=== PATIENT | female | born 1970 | race African-American/Black ===

== ENCOUNTER 2018-02-09 18:49 | Observation (INO) | payer SELFPAY ==
[~2018-02-09] VITALS: Ht 162.6 cm; Wt 106.6 kg
[~2018-02-09 18:49] MED LIST: ALDACTONE50 MG PO; BYETTA10 SC; GLIPIZIDE10 MG PO; HUMULIN 70/30 SC; JANUVIA100 MG PO; LANTUS100 MG/ML SC; LEVEMIR1000 UNITS SC; TORADOL PO; VENLAFAXINE HCL75 M1 PO; VENLAFAXINE150 MG PO
[2018-02-09 19:35] LABS: HEMATOCRIT 36.5 % (37.0-47.0); IMMATURE GRANULOCYTES 0.6 % (0.0-1.0); MEAN CELL VOLUME 75.7 fL CALC (80.0-100.0); MEAN CORPUSCULAR HGB 23.4 pG CALC (26.0-32.0); NEUT# 7.68 thou/uL (2.00-7.15); RED BLOOD COUNT 4.82 mill/uL (4.20-5.60)
[2018-02-09 20:05] LABS: ALBUMIN 3.9 g/dL (3.2-5.0); ALKALINE PHOSPHATASE 115 u/l (38-126); AMYLASE 57 u/l (30-110); ANION GAP 18 (6-22 (CALC)); BILIRUBIN, TOTAL 0.5 mg/dL (0.0-1.4); BUN 7 mg/dL (7-17); BUN/CREATININE RATIO 10 (12-20 (CALC)); CARBON DIOXIDE 27 mmol/l (22-30); CHLORIDE 95 mmol/l (95-108); CREATININE 0.7 mg/dL (0.5-1.0); GFR > 60 ML/MIN (>=60 (CALC)); GFR FOR AFR.AMER. > 60 ML/MIN (>=60 (CALC)); LIPASE 38 u/l (23-300); SGOT/AST 37 u/l (14-36); SGPT/ALT 26 u/l (9-52); SODIUM 137 mmol/l (137-146); TOTAL PROTEIN 8.1 g/dL (6.3-8.2)
[2018-02-09 20:06] LABS: POTASSIUM 3.3 mmol/l (3.5-5.1)
[2018-02-09 20:13] LABS: MYOGLOBIN 19 ng/mL (0 - 62)
[2018-02-09 20:19] LABS: HEMOGLOBIN 11.3 g/dl (12.0-16.0)
[2018-02-09 20:23] LABS: BARBITURATES NEGATIVE (NEGATIVE); COCAINE NEGATIVE (NEGATIVE); METHADONE NEGATIVE (NEGATIVE); TETRAHYDROCANNABIONOL NEGATIVE (NEGATIVE); TRICYLIC ANTIDEPRESSANTS NEGATIVE (NEGATIVE)
[2018-02-09 20:24] LABS: OXCYCODONE NEGATIVE (NEGATIVE)
[2018-02-10 00:50] VITALS: BP 136/86
[2018-02-10] MEDS ORDERED: METFORMIN500 MG PO (02:00)
[2018-02-10] MEDS ORDERED: LISINOPRIL2.5 MG PO (02:08)
[2018-02-10] MEDS ORDERED: LEVEMIR100 UNIT/M SC (02:13)
[2018-02-10] MEDS ORDERED: SPIRONOLACTONE25 MG PO (02:20)
[2018-02-10 04:00] VITALS: BP 119/69
[2018-02-10 08:22] LABS: ANION GAP 18 (6-22 (CALC)); BUN 6 mg/dL (7-17); BUN/CREATININE RATIO 10 (12-20 (CALC)); CALCULATED LDLCHOLESTEROL 103 mg/dL (62-129 (CALC)); CARBON DIOXIDE 31 mmol/l (22-30); CHLORIDE 94 mmol/l (95-108); CHOLESTEROL HDL RATIO 4.1 (<4.4 (CALC)); CREATININE 0.6 mg/dL (0.5-1.0); GFR > 60 ML/MIN (>=60 (CALC)); GFR FOR AFR.AMER. > 60 ML/MIN (>=60 (CALC)); HDL CHOLESTEROL 42 mg/dL (>=40); MAGNESIUM 1.6 mg/dL (1.6-2.3); SODIUM 139 mmol/l (137-146); TOTAL CHOLESTEROL 174 mg/dl (0-199); TOTAL TRIGLYCERIDES 142 mg/dl (30-149); VLDL CHOLESTROL 28 mg/dl (1-41 (CALC))
[2018-02-10 08:23] LABS: POTASSIUM 4.2 mmol/l (3.5-5.1)
[2018-02-10 09:25] VITALS: BP 126/54
[2018-02-10] MEDS ORDERED: LIPITOR20 M1 PO (10:55)
[2018-02-10] MEDS ORDERED: CHILD ASA LS81 MG PO (10:55)
[2018-02-10] MEDS ORDERED: BACLOFEN10 MG PO (10:55)
[2018-02-10 11:56] VITALS: BP 111/69
[2018-02-10 12:14] VITALS: BP 111/69
== END 2018-02-10 14:35 | disposition home or self-care (01) | DRG 313 ==
LOC: ED 18:49 → ED-I 20:29 → ED 23:37 → MS2 23:38
PROVIDERS: Emergency Medicine; Nurse Practitioner Family; ADMIT Internal Medicine; ATTEND Internal Medicine
DX: R07.89 Other chest pain (principal); E11.65 Type 2 diabetes mellitus with hyperglycemia; Z68.41 Body mass index [BMI] 40.0-44.9, adult; I10 Essential (primary) hypertension; M19.90 Unspecified osteoarthritis, unspecified site; F41.9 Anxiety disorder, unspecified; F32.9 Major depressive disorder, single episode, unspecified; R00.0 Tachycardia, unspecified; E78.5 Hyperlipidemia, unspecified; R93.8 Abnormal findings on diagnostic imaging of other specified body structures; Z91.14 Patient's other noncompliance with medication regimen; Z86.2 Personal history of diseases of the blood and blood-forming organs and certain disorders involving the immune mechanism; Z79.4 Long term (current) use of insulin
CPT/HCPCS: G0378

== ENCOUNTER 2018-08-18 07:57 | Emergency (ER) | payer SELFPAY ==
[~2018-08-18] VITALS: Ht 162.6 cm; Wt 109.1 kg
[~2018-08-18 07:57] MED LIST changes: +BACLOFEN10 MG PO; +CHILD ASA LS81 MG PO; +LEVEMIR100 UNIT/M SC; +LIPITOR20 M1 PO; +LISINOPRIL2.5 MG PO; +METFORMIN500 MG PO; +SPIRONOLACTONE25 MG PO
[2018-08-18] MEDS ORDERED: OMEGA 31000 MG PO (08:30)
[2018-08-18 09:02] LABS: HEMATOCRIT 37.8 % (37.0-47.0); HEMOGLOBIN 11.8 g/dl (12.0-16.0); IMMATURE GRANULOCYTES 0.6 % (0.0-5.0); MEAN CELL VOLUME 74.9 fL CALC (80.0-100.0); MEAN CORPUSCULAR HGB 23.4 pG CALC (26.0-32.0); MEAN CORPUSCULAR HGB CONC 31.2 g/L CALC (32.0-36.0); NEUT# 10.59 thou/uL (2.00-7.15); RED BLOOD COUNT 5.05 mill/uL (4.20-5.60); RED CELL DISTRI WIDTH 16.4 % (11.5-15.5)
[2018-08-18 09:04] LABS: URINE BLOOD DIPSTICK TRACE-LYSED (NEGATIVE); URINE COLOR ORANGE; URINE GLUCOSE - DIPSTICK 500 mg/dL (NEGATIVE); URINE KETONE 15 mg/dL (NEGATIVE); URINE PROTEIN - DIPSTICK 100 mg/dL (NEG-TRACE)
[2018-08-18 09:11] LABS: URINE CLARITY CLOUDY; URINE LEUK ESTERASE LARGE (NEGATIVE); URINE NITRITE - DIPSTICK POSITIVE (Negative)
[2018-08-18 09:12] LABS: URINE BACTERIA MODERATE hpf; URINE BILIRUBIN - DIPSTICK NEGATIVE (NEGATIVE); URINE EPITHELIAL CELLS FEW EPI/hpf (0-FEW); URINE WBC TNTC WBC/hpf (0-5)
[2018-08-18 09:24] LABS: ALBUMIN 3.8 g/dL (3.2-5.0); ALKALINE PHOSPHATASE 108 u/l (38-126); BILIRUBIN, TOTAL 0.6 mg/dL (0.0-1.4); BUN 13 mg/dL (7-17); BUN/CREATININE RATIO 20 (12-20 (CALC)); CARBON DIOXIDE 25 mmol/l (22-30); CHLORIDE 92 mmol/l (95-108); CREATININE 0.7 mg/dL (0.5-1.0); GFR > 60 ML/MIN (>=60 (CALC)); GFR FOR AFR.AMER. > 60 ML/MIN (>=60 (CALC)); POTASSIUM 4.6 mmol/l (3.5-5.1); SGOT/AST 39 u/l (14-36); TOTAL PROTEIN 7.4 g/dL (6.3-8.2)
[2018-08-18 09:25] LABS: ANION GAP 19 (6-22 (CALC)); SODIUM 131 mmol/l (137-146)
[2018-08-18] MEDS ORDERED: KEFLEX500 MG PO (10:16)
[2018-08-18 11:19] VITALS: BP 147/65
== END 2018-08-18 11:19 | disposition home or self-care (01) | DRG 690 ==
LOC: ED 07:57
PROVIDERS: Emergency Medicine
DX: N39.0 Urinary tract infection, site not specified (principal); E11.65 Type 2 diabetes mellitus with hyperglycemia; I10 Essential (primary) hypertension; B96.1 Klebsiella pneumoniae [K. pneumoniae] as the cause of diseases classified elsewhere

== ENCOUNTER 2018-11-06 16:14 | Emergency (ER) | payer OTHER ==
[~2018-11-06] VITALS: Ht 162.6 cm; Wt 104.0 kg
[~2018-11-06 16:14] MED LIST changes: +KEFLEX500 MG PO; +OMEGA 31000 MG PO
[2018-11-06] MEDS ORDERED: BACTRIM DS1 TAB PO (16:46)
[2018-11-06] MEDS ORDERED: SPIRONOLACTONE25 MG PO (16:47)
[2018-11-06] MEDS ORDERED: VENLAFAXINE HC150 MG PO (16:48)
[2018-11-06] MEDS ORDERED: LISINOPRIL5 MG PO (16:48)
[2018-11-06] MEDS ORDERED: LEVEMIR100 UNIT/M SC (16:49)
[2018-11-06 18:01] LABS: HEMATOCRIT 39.1 % (37.0-47.0); IMMATURE GRANULOCYTES 0.2 % (0.0-5.0); MEAN CELL VOLUME 75.3 fL CALC (80.0-100.0); MEAN CORPUSCULAR HGB 23.1 pG CALC (26.0-32.0); MEAN CORPUSCULAR HGB CONC 30.7 g/L CALC (32.0-36.0); NEUT# 6.39 thou/uL (2.00-7.15); RED BLOOD COUNT 5.19 mill/uL (4.20-5.60); RED CELL DISTRI WIDTH 16.3 % (11.5-15.5)
[2018-11-06 18:02] LABS: URINE BILIRUBIN - DIPSTICK NEGATIVE (NEGATIVE); URINE BLOOD DIPSTICK TRACE-LYSED (NEGATIVE); URINE COLOR YELLOW; URINE GLUCOSE - DIPSTICK 250 mg/dL (NEGATIVE); URINE KETONE NEGATIVE (NEGATIVE); URINE LEUK ESTERASE SMALL (NEGATIVE); URINE NITRITE - DIPSTICK POSITIVE (Negative); URINE PROTEIN - DIPSTICK 100 mg/dL (NEG-TRACE)
[2018-11-06 18:18] LABS: ALBUMIN 4.5 g/dL (3.2-5.0); ALKALINE PHOSPHATASE 91 u/l (38-126); ANION GAP 20 (6-22 (CALC)); BILIRUBIN, TOTAL 0.4 mg/dL (0.0-1.4); BUN 10 mg/dL (7-17); BUN/CREATININE RATIO 12 (12-20 (CALC)); CARBON DIOXIDE 26 mmol/l (22-30); CHLORIDE 91 mmol/l (95-108); CREATININE 0.9 mg/dL (0.5-1.0); GFR > 60 ML/MIN (>=60 (CALC)); GFR FOR AFR.AMER. > 60 ML/MIN (>=60 (CALC)); POTASSIUM 4.5 mmol/l (3.5-5.1); SGOT/AST 23 u/l (14-36); SODIUM 132 mmol/l (137-146); TOTAL PROTEIN 8.1 g/dL (6.3-8.2)
[2018-11-06 18:20] LABS: URINE BACTERIA MANY hpf; URINE SQUAMOUS EPITHELIAL CELL FEW EPI/hpf (0-FEW); URINE WBC 20-50 WBC/hpf (0-5)
[2018-11-06] MEDS ORDERED: ONDANSETRON4 MG PO (18:24)
[2018-11-06] MEDS ORDERED: KEFLEX500 MG PO (18:24)
[2018-11-06 18:43] VITALS: BP 137/97
== END 2018-11-06 19:26 | disposition home or self-care (01) | DRG 690 ==
LOC: ED 16:14
PROVIDERS: Emergency Medicine
DX: N39.0 Urinary tract infection, site not specified (principal); E11.9 Type 2 diabetes mellitus without complications; I10 Essential (primary) hypertension; M19.90 Unspecified osteoarthritis, unspecified site; B96.1 Klebsiella pneumoniae [K. pneumoniae] as the cause of diseases classified elsewhere

== ENCOUNTER 2019-12-08 00:45 | Inpatient (IN) | payer BC ==
[~2019-12-08] VITALS: Ht 162.6 cm; Wt 112.1 kg
[~2019-12-08 00:45] MED LIST changes: +ACCU-CHEK AVIVAP100 XX; +AMOXICILLIN500 MG PO; +BACTRIM DS1 TAB PO; +BYETTA10 MC1 SC; +DIFLUCAN150 MG OR; +EFFEXOR37.5 MG PO; +GLIPIZIDE10 M1 PO; +GLUCOTROL10 MG PO; +HUMALOG100 UNIT/M SC; +HYDROCHLOROT25 MG PO; +INSULIN SYR1 ML/31 G SC; +LIPITOR10 MG PO; +LISINOPRIL5 MG PO; +MOTRIN800 MG PO; +ONDANSETRON4 MG PO; +PERCOCET 5/325M1 TAB PO; +SPIRONOLACT50 M1 PO; +VENLAFAXINE HC150 M1 PO; +VENLAFAXINE HC150 MG PO
--- NOTE | 2019-12-08 01:35 | NUR ---
WHILE ATTEMPTING TO OBTAIN THROAT CULTURE...PT BEGAN VOMITING. NOTIFIED AND JORDI ORDERED. PT MEDICATED AND CULTURES OBTAINED.
--- NOTE | 2019-12-08 01:50 | NUR ---
IV STARTED/LABS DRAWN. ABD COMPLETED. BSC TO BS TO COLLECT SAMPLE...SINCE PT IS HAVING SOME INCONT.
[2019-12-08 02:18] LABS: HEMATOCRIT 34.5 % (37.0-47.0); HEMOGLOBIN 10.7 g/dl (12.0-16.0); IMMATURE GRANULOCYTES 0.8 % (0.0-5.0); MEAN CELL VOLUME 73.4 fL CALC (80.0-100.0); MEAN CORPUSCULAR HGB 22.8 pG CALC (26.0-32.0); NEUT# 12.34 thou/uL (2.00-7.15); RED BLOOD COUNT 4.7 mill/uL (4.20-5.60)
[2019-12-08 02:36] LABS: ALBUMIN 3.9 g/dL (3.2-5.0); ALKALINE PHOSPHATASE 102 u/l (38-126); AMYLASE 39 u/l (30-110); BILIRUBIN, TOTAL 0.4 mg/dL (0.0-1.4); BUN 10 mg/dL (7-17); BUN/CREATININE RATIO 12 (12-20 (CALC)); CARBON DIOXIDE 26 mmol/l (22-30); CHLORIDE 93 mmol/l (95-108); CREATININE 0.8 mg/dL (0.5-1.0); GFR > 60 ML/MIN (>=60 (CALC)); GFR FOR AFR.AMER. > 60 ML/MIN (>=60 (CALC)); LIPASE 48 u/l (23-300); MAGNESIUM 1.4 mg/dL (1.6-2.3); POTASSIUM 4.3 mmol/l (3.5-5.1); SGOT/AST 28 u/l (14-36); TOTAL PROTEIN 7.4 g/dL (6.3-8.2)
[2019-12-08 02:38] LABS: URINE BILIRUBIN - DIPSTICK NEGATIVE (NEGATIVE); URINE BLOOD DIPSTICK SMALL (NEGATIVE); URINE COLOR YELLOW; URINE GLUCOSE - DIPSTICK >=1000 mg/dL (NEGATIVE); URINE KETONE TRACE mg/dL (NEGATIVE); URINE LEUK ESTERASE NEGATIVE (NEGATIVE); URINE PH 5.5 (4.5-8.0); URINE PROTEIN - DIPSTICK 100 mg/dL (NEG-TRACE); URINE UROBILINOGEN - DIPSTICK 0.2 E.U./dL (0.2)
[2019-12-08 02:39] LABS: ANION GAP 16 (6-22 (CALC)); SODIUM 131 mmol/l (137-146)
[2019-12-08 02:41] LABS: URINE BACTERIA MANY hpf; URINE EPITHELIAL CELLS MODERATE EPI/hpf (0-FEW); URINE NITRITE - DIPSTICK POSITIVE (Negative)
--- NOTE | 2019-12-08 03:30 | NUR ---
RETURNED FROM RADIOLOGY VIA W/C.
--- NOTE | 2019-12-08 04:10 | NUR ---
MED REQ COMPLETED.
[2019-12-08] MEDS ORDERED: LISINOPRIL10 MG PO (04:18)
[2019-12-08] MEDS ORDERED: LEVEMIR100 UNIT/M SC (04:19)
[2019-12-08] MEDS ORDERED: METFORMIN500 MG PO (04:20)
[2019-12-08] MEDS ORDERED: SPIRONOLACTONE25 MG PO (04:20)
--- NOTE | 2019-12-08 04:24 | NUR ---
REPORT REC FROM PRIYANKA HERMAN
--- NOTE | 2019-12-08 04:25 | NUR ---
REPORT CALLED TO FLOOR.
--- NOTE | 2019-12-08 04:38 | NUR ---
PT ARRIVED TO [place] VIA STRETCHER ACCOMPANIED BY MONROE HERMAN. PT A&O X3. NO DISTRESS NOTED. STEADY GAIT OBSERVED WHILE AMBULATING TO THE BATHROOM. PT DENIES ANY DIZZINESS AT THIS TIME. PT DENIES ANY NAUSEA BUT DOES REPORT SOME ABD TENDERNESS. EXPLAINED TO THE PT THAT MOTRIN WAS AVAILABLE,PT REFUSED. CHICKEN BROTH OFFEREDAND GIVEN ALONG WITH A DIET GINGERALE. [facility] REFUSED. MAGENSIUM INFUSING AT A RATE OF 50 ML/HR. ORIENTED PT TO ROOM. ASSESSMENT COMPLETED. CALL LIGHT IN REACH.CONTINUE TO MONITOR.
[2019-12-08 04:40] VITALS: BP 134/79
--- NOTE | 2019-12-08 04:55 | NUR ---
TO FLOOR VIA STRETCHER WITH IVF/MAGNESIUM INFUSING VIA PUMP. PT RESTING. NAD. AMBULATORY TO SCALE AND BED UPON ARRIVAL.
[2019-12-08 05:22] LABS: HEMATOCRIT 32.5 % (37.0-47.0); IMMATURE GRANULOCYTES 0.7 % (0.0-5.0); MEAN CELL VOLUME 74.2 fL CALC (80.0-100.0); MEAN CORPUSCULAR HGB 22.8 pG CALC (26.0-32.0); MEAN CORPUSCULAR HGB CONC 30.8 g/dL CAL (32.0-36.0); NEUT# 10.55 thou/uL (2.00-7.15); RED BLOOD COUNT 4.38 mill/uL (4.20-5.60)
[2019-12-08 05:39] LABS: ALBUMIN 3.5 g/dL (3.2-5.0); ALKALINE PHOSPHATASE 83 u/l (38-126); ANION GAP 18 (6-22 (CALC)); BILIRUBIN, TOTAL 0.3 mg/dL (0.0-1.4); BUN 9 mg/dL (7-17); BUN/CREATININE RATIO 13 (12-20 (CALC)); CARBON DIOXIDE 23 mmol/l (22-30); CHLORIDE 97 mmol/l (95-108); CREATININE 0.7 mg/dL (0.5-1.0); GFR > 60 ML/MIN (>=60 (CALC)); GFR FOR AFR.AMER. > 60 ML/MIN (>=60 (CALC)); MAGNESIUM 1.6 mg/dL (1.6-2.3); POTASSIUM 4.1 mmol/l (3.5-5.1); SGOT/AST 25 u/l (14-36); SODIUM 134 mmol/l (137-146); TOTAL PROTEIN 6.7 g/dL (6.3-8.2)
--- NOTE | 2019-12-08 05:57 | NUR ---
CRITICAL LACTIC RESULT. RESULTS CALLED TO DR GERARD. PER PHYSICIAN, GIVE PT ONE LITER OF FLUIDS(NS) WIDE OPENED,BOLUS. ORDER WRITTEN AND FAXED TO
[2019-12-08 06:09] LABS: TSH, 3RD GENERATION 0.64 uIU/mL (0.47 - 4.68)
--- NOTE | 2019-12-08 09:00 | NUR ---
PT SEEN AWAKE, ALERT, ORIENTED X 3. LUNGS CLEAR, RA. PT WITH HEADACHE PAIN, PROVIDED MOTRIN FOR SAME. PT WITH UTI SYMPTOMS PER KNOWN UTI.
[2019-12-08] MEDS ORDERED: METFORMIN HCL500 M2 PO (09:55)
[2019-12-08 11:06] VITALS: BP 136/71
[2019-12-08 15:15] VITALS: BP 110/70
--- NOTE | 2019-12-08 16:00 | NUR ---
PT AT REST IN THE BED, NO EVIDENCE OF DISTRESS. PYRIDIUM PROVIDED FOR BLADDER SPASMS, TOLD TO EXPECT COLOR CHANGE IN URINE.
--- NOTE | 2019-12-08 18:36 | NUR ---
PT AT REST IN THE BED, NO DISTRESS, NO COMPLAINTS. PT AWARE OF ELEVATED BLOOD SUGARS, SAYS SHE KNOWS THAT SHE NEEDS TO CHANGE COURSE.
--- NOTE | 2019-12-08 19:20 | NUR ---
ASSESSMENT COMPLETED. PT. SITTING UP ON THE SIDE OF THE BED WITH NO RESP. DISTRESS NOTED. DENIES NEEDS/PAIN. IV SITE PATENT AND ORDERED IVF INFUSING. UPDATED PT. ON POC AND NEW MEDICATIONS, PT. REFUSES LOVENOX SCHEDULED FOR TONIGHT, WILL DOCUMENT SO. PT. REPORTS NO BM TODAY. URINE EMPTIED. BSC AT BEDSIDE. CALL LIGHT IS IN REACH. WILL CONTINUE TO MONITOR.
[2019-12-08 19:29] VITALS: BP 128/20
--- NOTE | 2019-12-08 23:17 | NUR ---
PT. RESTING IN BED ON RIGHT SIDE WITH NO RESP. DISTRESS NOTED. C/O VERNON 06/18 AND MEDICATED WITH ORDERED PRN TYLENOL;WILL REASESS.
[2019-12-09] VITALS (7 sets, daily range): BP systolic 112–180; BP diastolic 58–100
--- NOTE | 2019-12-09 04:30 | NUR ---
IV SITE SL AT THIS TIME FOR SHOWER. PT. DENIES FURTHER NEEDS. CALL LIGHT IS IN REACH.
[2019-12-09 05:11] LABS: HEMATOCRIT 29.1 % (37.0-47.0); HEMOGLOBIN 8.6 g/dl (12.0-16.0); IMMATURE GRANULOCYTES 0.7 % (0.0-5.0); MEAN CELL VOLUME 75.6 fL CALC (80.0-100.0); MEAN CORPUSCULAR HGB 22.3 pG CALC (26.0-32.0); MEAN CORPUSCULAR HGB CONC 29.6 g/dL CAL (32.0-36.0); NEUT# 5.22 thou/uL (2.00-7.15); RED BLOOD COUNT 3.85 mill/uL (4.20-5.60); RED CELL DISTRI WIDTH 16.2 % (11.5-15.5)
[2019-12-09 05:29] LABS: ANION GAP 12 (6-22 (CALC)); BUN 5 mg/dL (7-17); BUN/CREATININE RATIO 8 (12-20 (CALC)); CARBON DIOXIDE 23 mmol/l (22-30); CHLORIDE 104 mmol/l (95-108); CREATININE 0.6 mg/dL (0.5-1.0); GFR > 60 ML/MIN (>=60 (CALC)); GFR FOR AFR.AMER. > 60 ML/MIN (>=60 (CALC)); MAGNESIUM 1.8 mg/dL (1.6-2.3); POTASSIUM 4.2 mmol/l (3.5-5.1); SODIUM 135 mmol/l (137-146)
--- NOTE | 2019-12-09 07:00 | NUR ---
SHIFT CHANGE REPORT, PT AWAKE ALERT AND ORIENTED, C/O HEADACHE AT THIS TIME, TELE MONITOR IN PLACE, IVF INFUSING, NEEDS ADDRESSED, CALL GRAVES IN REACH.
--- NOTE | 2019-12-09 09:00 | NUR ---
SHIVANI NEGRETE ROUNDED AND DISCUSSED/ADDRESSED CONCERNS, PT STATED UNDERSTANDING. SOFT CRAB SHEDDER NOTIFIED OF LACTIC ACID RESULT, NO NEW ORDERS.
--- NOTE | 2019-12-09 10:28 | NUR ---
RUBINA FROM DIETARY CONSULTING AT THIS TIME AND EDUCATING PT ON THERAPEUTIC DIET TO CONTROL DIABETES.
--- NOTE | 2019-12-09 13:00 | NUR ---
PT C/O DIFFERENT FAMILY MEMBERS CALLING HER SEVERAL TIMES AND ACCUSING HER OF BEING RESPONSIBLE FOR HER HOSPITALIZATION SHE DOES NOT TAKE CARE OF HERSELF THE WAY SHE SHOULD AND ALSO ACCUSING HER OF BEING RESPONSIBLE FOR HER CHILDREN'S ACTION. SHE IS UNABLE TO REST WELL SHE IS BEING INTERRUPTED OFTEN BY PHONE CALLS AND THIS SITUATION CONTRIBUTES TO HER HEADACHE. MEDICAL ISSUES ADDRESSED BUT ADVISED SHE SHOULD ASK FAMILY TO CALL WITHIN GIVEN TIMEFRAME.
--- NOTE | 2019-12-09 16:00 | NUR ---
SLEEPING AT THIS TIME AFTER MEDICATED FOR HEADACHE, NO VISIBLE SIGN DISCOMFORT, CALL GRAVES IN REACH.
--- NOTE | 2019-12-09 19:35 | NUR ---
PT SITTING IN BED WATCHING TV. A&O X3. NO DISTRESS NOTED. PT DENIES ANY PAIN AT THIS TIME. PER PT SHE WAS ABLE TO TOLERATE HER SUPPER WELL WITH NO NAUSEA. NO OTHER NEEDS AT THIS TIME. ASSESSMENT COMPLETED. DISCUSSED POC. CALL LIGHT IN REACH. CONTINUE TO MONITOR.
[2019-12-10] VITALS (16 sets, daily range): BP systolic 121–189; BP diastolic 55–84
--- NOTE | 2019-12-10 00:02 | NUR ---
PT SLEEPING IN BED. NO DISTRESS NOTED. RESP EVEN AND UNLABORED. CONTINUE TO MONITOR.
[2019-12-10 04:59] LABS: HEMATOCRIT 29.4 % (37.0-47.0); HEMOGLOBIN 8.9 g/dl (12.0-16.0); MEAN CELL VOLUME 75.6 fL CALC (80.0-100.0); MEAN CORPUSCULAR HGB 22.9 pG CALC (26.0-32.0); MEAN CORPUSCULAR HGB CONC 30.3 g/dL CAL (32.0-36.0); RED BLOOD COUNT 3.89 mill/uL (4.20-5.60); RED CELL DISTRI WIDTH 16.2 % (11.5-15.5)
[2019-12-10 05:12] LABS: ANION GAP 13 (6-22 (CALC)); BUN 5 mg/dL (7-17); BUN/CREATININE RATIO 9 (12-20 (CALC)); CARBON DIOXIDE 24 mmol/l (22-30); CHLORIDE 102 mmol/l (95-108); CREATININE 0.6 mg/dL (0.5-1.0); GFR > 60 ML/MIN (>=60 (CALC)); GFR FOR AFR.AMER. > 60 ML/MIN (>=60 (CALC)); MAGNESIUM 1.8 mg/dL (1.6-2.3); POTASSIUM 4.3 mmol/l (3.5-5.1); SODIUM 134 mmol/l (137-146)
--- NOTE | 2019-12-10 07:10 | NUR ---
REPORT RECEIVED FROM LILLIERN;PT RESTING IN SEMI FOWLERS POSITION;INTRODUCED SELF TO PT AND POC DISCUSSED;RESPIRATIONS EVEN AND UNLABORED ON RA;PT DENIES ANY CURRENT PAIN OR DISCOMFORTS,PAIN SCALE AND REPORTING EDUCATED;TELE MONITORING IN PLACE;IV SITE INFUSING NS WITH EASE PER ORDER;PT ENCOURAGED TO CALL FOR ASSISTANCE IF NEEDED;FALL PRECAUTIONS IN PLACE WITH BED IN THE LOWEST POSITION AND CALL LIGHT IN REACH;WILL CONTINUE TO MONITOR
--- NOTE | 2019-12-10 08:45 | NUR ---
NATALIE,ER MONITORING NOTIFIED WRITTER OF POSSIBLE V-TACH VS PVS'S.PT ASYMPTOMATIC AT THIS TIME. STRIP SENT TO MED/SURG AND ADIA CARDENAS NOTIFIED. EKG TO BE OBTAINED.
--- NOTE | 2019-12-10 09:00 | NUR ---
PT RESTING AT BEDSIDE,A&O X3;VS OBTAINED AND ASSESSMENT COMPLETED;PT REPORTS THAT HEADACHE PAIN HAS DECREASED SINCE TYLENOL ADMINISTRATION,PAIN SCALE AND REPORTING RE-EDUCATED;RESPIRATIONS EVEN AND UNLABORED ON RA;ABDOMEN DISTENDED/SOFT ON PALPATION AND ACTIVE IN ALL 4 QUADRANTS;WEAK PEDAL PULSES;GENERALIZED EDEMA NOTED;TELE MONITORING IN PLACE;#20G TO LAC INFUSING NS PER ORDER WITH ASE,SITE APPEARS HEALTHY;PT DENIES ANY ADDITIONAL NEEDS AND IS ENCOURAGED TO CALL FOR ASSISTANCE IF NEEDED;FALL PRECAUTIONS IN PLACE WITH CALL LIGHT IN REACH;WILL CONTINUE TO MONITOR
--- NOTE | 2019-12-10 09:36 | NUR ---
LAB AT BEDSIDE
--- NOTE | 2019-12-10 10:32 | NUR ---
AT BEDSIDE DISCUSSING POC.
--- NOTE | 2019-12-10 10:45 | NUR ---
PT RESTING IN SEMI FOWLERS POSITION;RESPIRATIONS SHALLOW ON RA AND O2 SATS 88-89%, PT PLACED ON O2 @ 2L VIA NC AND O2 QUICKLY MECHE TO 91%;PT DENIES ANY CURRENT PAIN OR DISCOMFORTS;TELE MONITORING IN PLACE;CURRENT TEMP 101.3, PT TO BE MEDICATED WITH PRN MOTRIN 800MG PO,BLANKETS REMOVED AND AC LOWERED;IV FLUIDS CONTINUE TO INFUSE WITH EASE;ACCUCHECK 285, PT COVERED WITH SLIDING SCALE NOVOLOG PER ORDER;PT ENCOURAGED TO CALL FOR ASSISTANCE IF NEEDED;CALL LIGHT IN REACH;WILL CONTINUE TO MONITOR
--- NOTE | 2019-12-10 11:00 | NUR ---
PT TRANSPORTED TO [facility] IN STABLE CONDITION VIA WHEELCHAIR ACCOMPANIED BY FAITH LUNA.
--- NOTE | 2019-12-10 11:09 | NUR ---
PT RETURNED TO MED/SURG ROOM 279 IN STABLE CONDITION VIA WHEELCHAIR IN STABLE CONDITION ACCOMPANIED BY FAITH LUNA
--- NOTE | 2019-12-10 11:56 | NUR ---
SPOKE TO [facility],PT TO BE TRANSPORTED TO ICU BED 8
--- NOTE | 2019-12-10 12:20 | NUR ---
TEMP RE-CHECK 98.9.PT SWAB FOR COVID19 AT THIS TIME VIA LEFT NARE AND SENT DIRECTLY TO LAB FOR TESTING AND SEND OUT AT THIS TIME;PT VERBALIZES UNDERSTANDING REGARDING TRANSFER TO ICU AND NEG PRESSURE PRECAUTIONS;RESPIRATIONS REMAIN EVEN AND UNLABORED ON O2 @ 2L VIA NC;WILL CONTINUE TO MONITOR
--- NOTE | 2019-12-10 12:30 | NUR ---
REPORT GIVEN TO BATSHEVA MIXON
--- NOTE | 2019-12-10 12:40 | NUR ---
Discharge instructions given. Patient verbalizes understanding of same. Discharged in stable condition via Wheelchair to Home with family. All belongings sent with pt. PT TRANSPORTED TO [facility] IN STABLE CONDITION VIA WHEELCHAIR ACCOMPANIED FAITH IBARRA IN STABLE CONDITION.DAUGHTER TO TRANSPORT PT HOME.
--- NOTE | 2019-12-10 12:45 | NUR ---
PT TRANSFERRED FROM [facility] TO ICU. PT ON OXYGEN. PT DENIES PAIN, SOB AND CHEST PAIN AT THIS TIME. EDUCATED PATIENT ON ICU STATUS AND COVID RULE OUT STATUS. PT VERBALIZED UNDERSTANDING. VOIDING VIA BEDSIDE COMMODE. STABLE GATE. WILL CONTINUE TO MONITOR.
--- NOTE | 2019-12-10 12:45 | NUR ---
PT TRANSPORTED TO ICU BED 8 IN STABLE CONDITION VIA HOSPITAL BED ACCOMPANIED BY TIFFANY AND FAITH LUNA.CARE RELINQUISHED TO BATSHEVA MIXON.
--- NOTE | 2019-12-10 13:57 | NUR ---
ID CONSULT WITH DR. CARI QUINTEROS
--- NOTE | 2019-12-10 14:04 | NUR ---
PT RESTING IN BED WITH EYES CLOSED. NO DISTRESS NOTED, DENIES PAIN. WILL CONTINUE TO MONITOR
[2019-12-10 14:17] LABS: HEMATOCRIT 30.6 % (37.0-47.0); HEMOGLOBIN 9.3 g/dl (12.0-16.0); IMMATURE GRANULOCYTES 0.8 % (0.0-5.0); MEAN CELL VOLUME 74.5 fL CALC (80.0-100.0); MEAN CORPUSCULAR HGB 22.6 pG CALC (26.0-32.0); MEAN CORPUSCULAR HGB CONC 30.4 g/dL CAL (32.0-36.0); NEUT# 6.68 thou/uL (2.00-7.15); RED BLOOD COUNT 4.11 mill/uL (4.20-5.60); RED CELL DISTRI WIDTH 15.9 % (11.5-15.5)
[2019-12-10 15:06] LABS: C-REACTIVE PROTEIN 17.4 mg/dL (0-0.9)
--- NOTE | 2019-12-10 15:17 | NUR ---
DR PARRA UPDATED ON PATIENT STATUS AND LAB RESULTS
--- NOTE | 2019-12-10 15:45 | NUR ---
CONSULT WITH ID DR. ALCALA COMPLETED
--- NOTE | 2019-12-10 16:15 | NUR ---
DR. PARRA NOTIFIED OF ID CONSULT RECOMMENDATION TO CONTINUE ANTIBITOICS. PER DR PARRA CONTINUE ZOSYN
--- NOTE | 2019-12-10 16:16 | NUR ---
PT RESTING IN BED WITH EYES CLOSED. NO DISTRESS NOTED. WILL CONTINUE TO MONITOR
--- NOTE | 2019-12-10 18:10 | NUR ---
PT UP AT BEDSIDE TO EAT DINNER. NO DISTRESS NOTED. REPORT TO BE GIVEN TO NIGHT NURSE
--- NOTE | 2019-12-10 18:45 | NUR ---
RECEIVED REPORT FROM ORAL HERMAN.
--- NOTE | 2019-12-10 19:00 | NUR ---
PT LYING ON L SIDE WATCHING TV. NO RESP DISTRESS NOTED. CALL GRAVES IN REACH.
--- NOTE | 2019-12-10 19:20 | NUR ---
AT BEDSIDE WITH PT. DENIED RESP DIFF, NO NEEDS AT THIS TIME. CALL GRAVES IN REACH. GAVE PT PERSONAL BELONGINGS BAG.
--- NOTE | 2019-12-10 20:00 | NUR ---
PT UP AD IVETT IN ROOM. RESP EVEN AND UNLABORED. VSS PER MONITOR CALL GRAVES IN REACH.
--- NOTE | 2019-12-10 21:00 | NUR ---
PT REFUSED LOVENOX. DISCUSSED WITH PT WHY IT WAS IMPORTANT TO HAVE. PT SAID" I MOVE MY LEGS ALL THE TIME AND I DONT NEED IT." OFFERED AGAIN TO PT, REFUSED. PT RELATED SHE DOES NOT WANT STOCKING OR ANYTHING ON HER LEGS. PROVIDED WATER AND DIET SODA, NO OTHER NEEDS AT THIS TIME. CALL GRAVES IN REACH.
--- NOTE | 2019-12-10 22:00 | NUR ---
PT LYING IN BED WITH TV ON. RESP EVEN AND UNLABORED. NO DISTRESS NOTED. CALL GRAVES IN REACH.
[2019-12-11] VITALS (12 sets, daily range): BP systolic 101–171; BP diastolic 59–77
--- NOTE | 2019-12-11 | NUR ---
PT LYING ON L SIDE WATCHING TV. RESP EVEN AND UNLABORED. NO C/O PAIN. NO NEEDS AT THIS TIME. CALL GRAVES IN REACH. ZOSYN INFUSING VIA PUMP.
--- NOTE | 2019-12-11 02:00 | NUR ---
PT WITH EYES CLOSED. NO DISTRESS NOTED. SA02 97% ON 2L 02 NC. CALL GRAVES IN REACH.
--- NOTE | 2019-12-11 04:14 | NUR ---
PT WITH DRY COUGH. SA02 99%
--- NOTE | 2019-12-11 05:24 | NUR ---
PT RELATED SHE IS FEELING MUCH BETTER THAN WHEN SHE CAME IN. REQUESTED COFFEE. NO C/O OF SOB. CALL GRAVES IN REACH.
[2019-12-11 05:44] LABS: HEMATOCRIT 27.9 % (37.0-47.0); HEMOGLOBIN 8.5 g/dl (12.0-16.0); IMMATURE GRANULOCYTES 0.6 % (0.0-5.0); MEAN CELL VOLUME 74.2 fL CALC (80.0-100.0); MEAN CORPUSCULAR HGB 22.6 pG CALC (26.0-32.0); MEAN CORPUSCULAR HGB CONC 30.5 g/dL CAL (32.0-36.0); NEUT# 4.23 thou/uL (2.00-7.15); RED BLOOD COUNT 3.76 mill/uL (4.20-5.60); RED CELL DISTRI WIDTH 15.9 % (11.5-15.5)
--- NOTE | 2019-12-11 06:00 | NUR ---
COFFEE PROVIDED. AGAIN PT STATED SHE FEELS MUCH BETTER. NO C/O OF SOB OR PAIN AT THIS TIME. NO OTHER NEEDS. CALL GRAVES IN REACH.
[2019-12-11 06:05] LABS: ANION GAP 11 (6-22 (CALC)); BUN 5 mg/dL (7-17); BUN/CREATININE RATIO 9 (12-20 (CALC)); CARBON DIOXIDE 27 mmol/l (22-30); CHLORIDE 103 mmol/l (95-108); CREATININE 0.6 mg/dL (0.5-1.0); GFR > 60 ML/MIN (>=60 (CALC)); GFR FOR AFR.AMER. > 60 ML/MIN (>=60 (CALC)); POTASSIUM 4.2 mmol/l (3.5-5.1); SODIUM 137 mmol/l (137-146)
--- NOTE | 2019-12-11 06:40 | NUR ---
REPORT TO STEPHANE HERMAN
--- NOTE | 2019-12-11 08:00 | NUR ---
PT SEEN AWAKE, ALERT, ORIENTED X 3. LUNGS CLEAR BUT DIMINISHED, 2 LPM NC. PT UP TO BSC NEEDED, ABLE TO GO BY HERSELF. NO COUGH HEARD. ELEVATED BP, MEDS DUE SOON.
--- NOTE | 2019-12-11 10:35 | NUR ---
PT NEGATIVE FOR COVID-19, PER LAB.
--- NOTE | 2019-12-11 11:21 | NUR ---
1100; ACCUCHECK 299, INSULIN COVERAGE GIVEN PER SLIDING SCALE ORDERED. PT.C/O FEELING VERY TIRED AND STARTING TO COUGH A LITTLE. ENCOURAGED TO REST.
--- NOTE | 2019-12-11 12:00 | NUR ---
PT SEEN BY DR PARRA THIS MORNING, DECIDES TO STAY ONE MORE NIGHT. PCXR COMPLETED. BEDBATH COMPLETE. PT NOW AT 1 LPM NC, 95%. NO COUGH, NO DISTRESS.
--- NOTE | 2019-12-11 16:06 | NUR ---
PT SEEN RESTING IN THE BED, NO DISTRESS, NO COMPLAINTS OF PAIN OR DISCOMFORT.
--- NOTE | 2019-12-11 17:22 | NUR ---
PT PROVIDED HYDRALAZINE FOR CONTINUING ELEVATED BP, NOW 170/75. BLOOD SUGAR 177, PROVIDED WITH ONE UNIT INSULIN.
--- NOTE | 2019-12-11 18:13 | NUR ---
PT CONCERNED THAT SHE WAS NOT GETTING HER SPIRONOLACTONE AND LISINOPRIL WHILE HERE. EMAR CHECKED AND PT IS RECEIVING BOTH. IV RETAPED FOR SLIGHT LEAKING.
--- NOTE | 2019-12-11 19:45 | NUR ---
SITTING AT SIDE OF BED. PATIENT C/O HEADACHE RATES 8/10, MEDICATED FOR PAIN ORDERED. RESP NON-LABORED. O2 ON AT 1 L NC. BREATH SOUNDS DECREASED THROUGHOUT LUNG PAGE. TRACE PEDAL EDEMA PRESENT BILATERALLY. SALINE LOCK IN LAC, SITE BENIGN. PERSONNEL ANALYST SHOWS SR, HR 90'S. DISCUSSED PLAN OF CARE. DENIES NEEDS AT THIS TIME.
--- NOTE | 2019-12-11 21:00 | NUR ---
PATIENT REFUSED LOVENOX.
--- NOTE | 2019-12-11 22:00 | NUR ---
RESTING WITH EYES CLOSED. RESPP NON-LABORED. VSS.
[2019-12-12] VITALS (7 sets, daily range): BP systolic 109–163; BP diastolic 58–81
--- NOTE | 2019-12-12 00:15 | NUR ---
ASLEEP ON ROUNDS, AWAKENS TO NAME. SALINE LOCK IN LAC FLUSHED AND PATENT, ZOSYN IV PB INFUSING. NO COMPLAINTS VOICED BY PATIENT. SR ON MONITOR. VSS.
--- NOTE | 2019-12-12 02:00 | NUR ---
VSS. NO CHANGES TO REPORT.
--- NOTE | 2019-12-12 04:15 | NUR ---
SLEEPING ON ROUNDS. RESP NON-LABORED. SR ON MONITOR.
--- NOTE | 2019-12-12 06:00 | NUR ---
SITTING UP IN BED ON ROUNDS. DENIES ANY PAIN OR DISCOMFORTS. RESP EVEN AND UNLABORED. O2 SAT 98% ON 1 L NC. SALINE LOCK REMAINS PATENT IN LAC, SITE BENIGN.
--- NOTE | 2019-12-12 08:21 | NUR ---
PT SEEN AWAKE, ALERT, ORIENTED X 3. LUNGS CLEAR, 1 LPM NC PRN. ABDOMEN SOFT, NONTENDER, PT AMBULATED TO FOR BM THIS MORNING. PT STATES THAT SHE HAS NOT FELT THIS GOOD IN A LONG TIME.
[2019-12-12] MEDS ORDERED: LOPRESSOR 550 MG/TAB PO (08:38)
[2019-12-12] MEDS ORDERED: KEFLEX500 MG PO (08:38)
--- NOTE | 2019-12-12 11:34 | NUR ---
PT PROVIDED MEAL TRAY AT THIS TIME. PT IS AWARE OF PENDING DISCHARGE TO HOME, READY FOR THAT TO HAPPEN, AWAITING DR AGUILERA'S ARRIVAL.
--- NOTE | 2019-12-12 14:00 | NUR ---
PT HAS BEEN DISCHARGED TO HOME. DR AGUILERA HAS SEEN PT, AGREES THAT SHE IS READY FOR DISCHARGE. PT VERBALIZED UNDERSTANDING OF DC INSTRUCTIONS, WAS TAKEN TO VEHICLE IN WHEELCHAIR.
== END 2019-12-12 14:00 | disposition home or self-care (01) | DRG 872 ==
LOC: ED 00:45 → ED-I 02:47 → ED 03:08 → MS2 03:09 → ICU 12-09 12:59 → MS2 12-09 12:59 → ICU 12-09 12:59
PROVIDERS: Nurse Practitioner Family; ADMIT Internal Medicine; ATTEND Internal Medicine
DX: A41.9 Sepsis, unspecified organism (principal); N12 Tubulo-interstitial nephritis, not specified as acute or chronic; E87.2 Acidosis; I10 Essential (primary) hypertension; J02.0 Streptococcal pharyngitis; E11.65 Type 2 diabetes mellitus with hyperglycemia; F41.8 Other specified anxiety disorders; B37.3 Candidiasis of vulva and vagina; T38.3X6A Underdosing of insulin and oral hypoglycemic [antidiabetic] drugs, initial encounter; L68.0 Hirsutism; E83.42 Hypomagnesemia; R09.02 Hypoxemia; R06.03 Acute respiratory distress; E87.70 Fluid overload, unspecified; B96.1 Klebsiella pneumoniae [K. pneumoniae] as the cause of diseases classified elsewhere; Z91.128 Patient's intentional underdosing of medication regimen for other reason; Z79.4 Long term (current) use of insulin; Z20.828 Contact with and (suspected) exposure to other viral communicable diseases
CPT/HCPCS: J1650; Q3014

== ENCOUNTER 2020-04-20 17:21 | Emergency (ER) | payer BC ==
[~2020-04-20] VITALS: Ht 165.1 cm; Wt 105.0 kg
[~2020-04-20 17:21] MED LIST changes: +LISINOPRIL10 MG PO; +LOPRESSOR 550 MG/TAB PO; +METFORMIN HCL500 M2 PO
[2020-04-20] MEDS ORDERED: BACTRIM DS1 TAB PO (17:54)
[2020-04-20 18:00] VITALS: BP 147/78
== END 2020-04-20 18:05 | disposition home or self-care (01) | DRG 601 ==
LOC: ED 17:21
DX: N61.1 Abscess of the breast and nipple (principal); I10 Essential (primary) hypertension; E11.9 Type 2 diabetes mellitus without complications; Z79.84 Long term (current) use of oral hypoglycemic drugs

== ENCOUNTER 2020-12-01 04:36 | Emergency (ER) | payer BC ==
[~2020-12-01] VITALS: Ht 165.1 cm; Wt 111.0 kg
[2020-12-01 05:00] VITALS: BP 161/77
== END 2020-12-01 05:41 | disposition home or self-care (01) | DRG 603 ==
LOC: ED 04:36
PROC: 0H95XZZ Drainage of Chest Skin, External Approach (ICD-10-PCS; principal; 2020-12-01)
DX: L02.213 Cutaneous abscess of chest wall (principal); I10 Essential (primary) hypertension; E11.9 Type 2 diabetes mellitus without complications; Z79.4 Long term (current) use of insulin